=== PATIENT | male | born 1955 | race Caucasian/White ===

== ENCOUNTER 2025-05-08 18:42 | Inpatient (IN) | payer OTHER, SELFPAY ==
[2025-05-08] VITALS (33 sets, daily range): BP systolic 94–138; BP diastolic 62–94
[2025-05-08 14:07] LABS: % Basophils 0.6 % (0-2); % Eosinophils 1.5 % (0-6); % Immature Granulocytes 0.3 % (0-0.5); % Lymphocytes 9.8 % (20.5-51.1); % Monocytes 9.9 % (1.7-9.3); % Neutrophils 77.9 % (42.2-75.2); Absolute Eosinophils 0.1 10^3/uL (0-0.7); Absolute Lymphocytes 0.7 10^3/uL (1.2-3.4); Absolute Monocytes 0.7 10^3/uL (0.1-0.6); Absolute Neutrophils 5.2 10^3/uL (1.4-6.5); Hematocrit 42.3 % (39.0-52.0); Hemoglobin 14.8 g/dL (13.0-18.0); Mean Corpuscular Hgb 32.1 pg (27.0-31.0); Mean Corpuscular Volume 91.8 fL (80.0-94.0); Mean Platelet Volume 9.2 fL (7.4-10.4); Nucleated Red Blood Cells % 0 % (-); Platelet Count 209 10^3/uL (130-400); Red Blood Cell Count 4.61 10^6/uL (4.70-6.10); Red Cell Dist. Width 13.3 % (11.5-14.5); White Blood Cell Count 6.6 10^3/uL (4.8-10.8)
--- NOTE | 2025-05-08 14:08 | ED.GENMED ---
History of Present Illness
General
Chief Complaint: Chest Pain
Source: patient
Exam Limitations: none
Time Seen by Provider: 05/08/25 13:57
History of Present Illness
History of Present Illness:
Note:
CHIEF COMPLAINT(S)
Chest pain and discomfort.
HISTORY OF PRESENT ILLNESS
The patient is a 70-year-old male with a history of heart disease and multiple stent placements, presenting with chest pain and pressure, similar to prior myocardial infarctions. The symptom onset occurred approximately one hour before the
interview, while the patient was playing with his granddaughter. He describes the pain as pressure on his chest with jaw pain and was associated with sweating and clamminess. The patient took his usual 81 mg of aspirin, but no additional
medications. His past medical history includes a myocardial infarction with his last known heart attack occurring in 2020. The patient experienced a similar episode during a hockey game. He reports that his peoplesoft financial developer discontinued his Brilinta
medication in the spring, and he has only been on aspirin since.
CHRONIC MEDICAL CONDITIONS SIGNIFICANTLY AFFECTING CARE
History of myocardial infarction and coronary artery stent placement.
SOCIAL HISTORY
The patient denies current alcohol or drug use but has a history of substance exposure due to chemotherapy in the past.
MEDICATIONS
81 mg Aspirin daily.
PLAN
- Perform blood tests to evaluate cardiac enzyme levels.
- Administer additional aspirin to reach a full dose for today.
- Consider administering nitroglycerin for chest pain relief.
- Arrange for cardiology consultation given the patients cardiac history.
- Monitor symptoms and reassess based on test results and response to treatment.
DIFFERENTIAL DIAGNOSIS
The Differential Diagnosis includes, in no particular order and is not limited to:
1. Myocardial infarction
2. Angina pectoris
3. Gastroesophageal reflux disease
4. Musculoskeletal chest pain
Past History
Past History
ED Past Medical History: CAD, HTN, Hypercholesterolemia and Other (Coronary artery disease status post stents x2, Dillard's esophagus, hypertension and reflux. History of hepatitis a)
ED Past Surgical History: Other (History of stent placement, multiple endoscopies, and hernia surgery.)
Social History
Tobacco: Non-smoker
Alcohol: None
Personal:
Living: with family
Employment: Employed
Family History
Family History: Diabetes
Phy Exam
Physical Exam
Physical Exam:
General: Well-appearing male no acute respiratory distress
HEENT: Normocephalic atraumatic
Heart: Regular rate and rhythm
Lungs: Clear no wheeze
Extremities: No cyanosis or edema
Scores
Heart Score for Chest Pain Patients
STEMI patient?: No
History: Highly Suspicious
ECG: Nonspecific Repolarization
Age: >/= 65 years
Risk Factors: >/= 3 Risk Factors or History of CAD
Troponin: </= Normal Limit
Heart Score for Chest Pain Patients: 7
Heart Score Risk: 72.7 % MACE over next 6 weeks
Course
Orders/Labs/Results
Orders:
Orders
05/08/25 13:46
Electrocardiogram (*1) Urgent
Reason for Study: Chest Pain
05/08/25 13:47
EKG- Treatment ONCE
05/08/25 13:54
Cardiac Monitoring- Treatment ONCE
05/08/25 14:01
Complete Blood Count/With Diff Urgent
Comprehensive Metabolic Panel Urgent
Troponin I Urgent
05/08/25 14:06
Aspirin Chewable [Low Strength Aspirin] 243 mg PO NOW STA
Nitroglycerin Sublingual [Nitrostat (Sublingual)] 0.4 mg SL [id number] PRN
05/08/25 14:08
CR Chest Portable - 1 View Urgent
Comment:
Reason For Exam: chest pain
Reason Study Needs to be Portable: Patient Unstable
05/08/25 15:02
Electrocardiogram (*1) Urgent
Reason for Study: Chest Pain
EKG- Treatment ONCE
05/08/25 15:10
Echo 2D MMode Color/Doppler [Echo 2D MMode Color/Doppler] Stat
Reason for Study: chest pain/ACS
Cardiology Consult: Erin Gold
05/08/25 15:13
Heparin 4,000 units IV NOW STA
Nursing to Place Non Medication Order As Directed
Physician Order: PTT 6 hours after initial start of Heparin infusion
05/08/25 15:15
Heparin 38011 Units/250 ml 25,000 units in 250 ml IV PER PROTOCOL
Weight to be used for heparin protocol in kilograms (kg):: 84.9
Protocol:: Cardiac Tx/Acute Coronary
PTT Goal Range to be used:: PTT 73 to 111 seconds
Order type:: Initial
INITIAL Infusion Dose (UNITS/KG/hr) & then follow protocol:: 12 units/kg/hr
Infusion Dose in UNITS/hr & then follow protocol (UNITS/hr):: 1,000
INFUSION RATE in mL/hr & then follow protocol (mL/hr):: 10
PTT less than or equal to 64 seconds:: Increase rate by 200 units/hr (+ 2 mL/hr)
PTT 64.1 to 72.9 seconds:: Increase rate by 100 units/hr (+ 1 mL/hr)
PTT 73 to 111 seconds:: Target Range. No change in rate.
PTT 111.1 to 130.9 seconds:: Decrease rate by 100 units/hr (- 1 mL/hr)
PTT 131 to 199.9 seconds:: HOLD for 1 hr. Then decrease rate by 200 units/hr (- 2 mL/hr)
PTT greater than or equal to 200 seconds:: HOLD for 2 hrs & Notify Provider. Then decrease by 200 units/hr (-
2 mL/hr)
Lab follow-up:: Each change, PTT q6h until 2 consecutive are therapeutic. Then PTT
daily.
05/08/25 15:33
PTT Urgent
Comment: Obtain baseline before beginning heparin infusion if not already collected
05/08/25 16:00
Mag Hydrox/Al Hydrox/Simeth [Maalox] 30 ml PO NOW STA
Abnormal Lab Results
05/08/25
14:01
RBC 4.61 L 10^6/uL
(4.70-6.10)
MCH 32.1 H pg
(27.0-31.0)
Absolute Lymphs (auto) 0.7 L 10^3/uL
(1.2-3.4)
Absolute Monos (auto) 0.7 H 10^3/uL
(0.1-0.6)
Neutrophils % 77.9 H %
(42.2-75.2)
Lymphocytes % 9.8 L %
(20.5-51.1)
Monocytes % 9.9 H %
(1.7-9.3)
Chloride 113 H mmol/L
(98-107)
BUN 25 H mg/dl
(9-20)
Glucose 138 H mg/dl
(70-99)
05/08/25 14:01
05/08/25 14:01
Vital Signs
Initial and Last Documented VS:
Initial Vital Signs
Temp Pulse Resp BP Pulse Ox
98.0 F 68 17 128/80 99
05/08/25 13:50 05/08/25 13:50 05/08/25 13:50 05/08/25 13:50 05/08/25 13:50
Last Documented Vital Signs
Temp Pulse Resp BP Pulse Ox
98.0 F 65 16 102/74 95
05/08/25 13:50 05/08/25 15:45 05/08/25 15:45 05/08/25 15:05 05/08/25 15:15
*Pulse Oximetry
Patient hypoxic: no
Comment: 96% room air
*Critical Care Note
Total Time (30-74mins, 75-104mins- exclusive of procedures): Not Applicable
Update Note
Update Note:
Initial troponin undetectable. Patient received 3 sublingual nitroglycerin tablets. He received the remainder of a full aspirin. Seen by cardiology who recommended patient stay in the hospital given concerning story and history. Hospitalist made
aware
ED Attending Note
-
Portions of this chart may have been created with voice recognition software.� Occasional wrong word or��sound alike� substitutions may have occurred due to the inherent limitations of voice recognition software.
Discharge Plan
Departure
Patient Disposition: Admit
Date of Disposition: 05/08/25
Time of Disposition: 16:06
Presentation/result/management discussed w/ accepting MD/DO: Hospitalist
Discharge Problem:
Chest pain
Prescriptions:
No Action
carvedilol 6.25 mg Tablet
6.25 mg PO BID
lisinopril 20 mg Tablet
20 mg PO HS
prednisone 5 mg Tablet
5 mg PO DAILY
Patient Comments:
05/08/2025, pt. takes w/ their Zytiga.
spironolactone 25 mg Tablet
25 mg PO DAILY
pantoprazole 40 mg Tablet,Delayed Release (Dr/Ec)
40 mg PO DAILY
aspirin 81 mg Tablet
81 mg PO DAILY
abiraterone [Zytiga] 250 mg Tablet
1,000 mg PO DAILY
Patient Comments:
05/08/2025, takes with prednisone. Last filled on 04/04/2025 for 120 tablets for a 30-day supply per [employer] ([phone]).
dapagliflozin propanediol [Farxiga] 10 mg Tablet
10 mg PO DAILY@1400
Repatha SureClick 140 mg/mL Pen Injector
140 mg SC Q2W
Patient Comments:
05/08/2025, next dose is due on 05/12/2025 per pt.
Interventions
Interventions:
*Risk Screen - Suicide Last Done: 05/08/25 13:52
*General Assessment Last Done: 05/08/25 13:52
*Neglect/Abuse Screening Last Done: 05/08/25 13:52
*ED COVID-19 Vaccine History Last Done: 05/08/25 13:52
ED- Cardiac Assessment Last Done: 05/08/25 14:04
Discharge Date and Time
Print Language: COOK ISLANDER
[2025-05-08] MEDS: NITROSTAT (SUBLINGUAL) 0.4 MG SL (14:11)
[2025-05-08] MEDS: LOW STRENGTH ASPIRIN 243 MG PO (14:11)
[2025-05-08 14:28] LABS: ALT (SGPT) 18 U/L (0-50); AST (SGOT) 19 U/L (17-59); Albumin 3.9 g/dl (3.5-5.0); Alkaline Phosphatase 97 U/L (38-126); Blood Urea Nitrogen 25 mg/dl (9-20); Calcium 9.4 mg/dl (8.4-10.2); Carbon Dioxide 24 mmol/L (22-30); Chloride 113 mmol/L (98-107); Glucose 138 mg/dl (70-99); Potassium 3.9 mmol/L (3.5-5.1); Sodium 144 mmol/L (135-145); Total Bilirubin 0.5 mg/dl (0.2-1.3); Total Protein 6.5 g/dl (6.3-8.2); eGFR > 60.00
[2025-05-08 14:40] LABS: Troponin I < 0.012 ng/ml
--- NOTE | 2025-05-08 15:13 | CON.CAR ---
Addendum entered and electronically signed by Erin Gold MD 05/08/25 18:00:
I saw and examined the patient.
The Unit Control Worker's note was reviewed and I agree with the note.
Comment: Shantanu is a 70-year-old gentleman with past medical history of hypertension, hyperlipidemia, ischemic cardiomyopathy with baseline LVEF of about 40 to 45% reportedly, coronary artery disease with prior stents dating all the way back to
2002, initially in the LAD, 2006 in the RCA with another stent for in-stent restenosis in 2016, repeat LAD PCI with PTCA to diagonal in 2021 who presents today to the hospital with sudden onset substernal chest pressure radiating to the jaw while at
rest 30 minutes after walking around with his daughter and grandkids while visiting from [facility]. His initial troponin is negative at less than 0.01 however he needed for sublingual nitroglycerin with intermittent relief in chest
discomfort, never resolve meant.
1. Vital signs and lab work reviewed. Of note initial troponin is less than 0.01. ECG with no signs of acute ischemic changes.
On exam patient is well-appearing, alert and oriented in mild distress, no JVP, normal carotid upstrokes, no carotid bruit
Lungs are clear to auscultation bilaterally, regular rate, normal S1 and S2, no murmurs rubs or gallops, 2+ radial pulse on the right side, warm extremities without significant edema
Recommendations:
1. Given concern for unstable angina, along with the aspirin he received in ED already, we will initiate a heparin drip. Given his 6 out of 10 chest discomfort he was given sublingual nitroglycerin at bedside per my direction. Blood pressure at
this point reduced down to 100/84 while patient continues to have 1 out of 10 jaw pain and 2 out of 10 chest pressure. With ongoing symptoms despite treatment for ACS, decision was made to initiate decision-making fashion to bring patient up to the
heart catheterization lab for urgent heart catheterization after discussing detailed risk and benefits and obtaining informed consent.
2. Continue aggressive medical therapy for ischemic cardiomyopathy and secondary CAD risk factors. Work on obtaining records.
3. Further recommendations based on results of the heart catheterization.
4. Patient's and daughter at bedside who were involved in the decision-making and informed of all of the above.
5. Given some belching and GI symptoms with known history of hiatal hernia, with ongoing chest discomfort we also asked the nurse at bedside to give him some Maalox
Discussed all of the above with nursing staff at bedside.
Erin Gold MD, [facility], [facility]
Original Note:
Consultation
Consultation Request
Date/Time Consultation Requested: 05/08/2025
Date/Time Consultation Performed: 05/08/2025
Requesting Provider: Billy Camacho PA-C
Performing Provider: Abbey Gonzalez PA-C for Dr. Gold
Reason for Consultation: Chest pain
Medical History
-
History of Present Illness:
Patient is a 70-year-old male with past medical history significant for coronary artery disease with history of anterior wall MN and VT/V-fib arrest 10/11/2023 with LAD stent and PTCA of diagonal, RCA stent in 2005 and additional stenting in
[place] in 2017 (unknown vessels) he, ischemic cardiomyopathy, hypertension, hyperlipidemia, hiatal hernia, prostate cancer status post XRT on Zytiga and Lupron who presents to emergency department 05/08/2025 with acute onset of substernal chest
pain. Patient currently lives in [facility] and follows with Dr. Eleazar Marie [phone]. He reports he saw his supply tech in the spring and had an echo and stress test that 'were fine.' He is here in [place] visiting his daughter.
He was playing with his young granddaughter earlier this afternoon when he developed acute onset of substernal chest pain around 1 PM which radiated into his jaw and down his left arm. He then became diaphoretic and had excessive belching. He
reports his symptoms were similar to when he had a prior coronary event. His daughter reports he looked very pale. They called 911 [address] to [address] him in personal vehicle as they did not live very far from the hospital. Blood pressure on
arrival 128/80. EKG showed sinus rhythm at 62 bpm with nonspecific lateral T wave abnormality. Chest x-ray did show moderate size hiatal hernia which patient reports is a known and chronic finding. Initially chest pain was 9 out of 10. He was
provided sublingual nitroglycerin x 3 over course of 15 to 20 minutes with improvement but not complete resolution of symptoms. Post nitroglycerin blood pressure dropped to 102/68. At time of this evaluation patient notes very mild substernal
chest discomfort 0.5/10 and mild jaw pain. Also occasional belching.
Past medical history:
Coronary artery disease
Anterior MN with VT V-fib arrest September 2003 status post 4.0 x 28 mm Cypher ESTHER to LAD, PTCA of diagonal
Status post 4.0 Taxus ESTHER to mid RCA July 2006
Status post ESTHER x 2 in [place] in 2016, unclear vessels
Ischemic cardiomyopathy EF 44%
Hypertension
Hyperlipidemia
Hiatal hernia
Prostate cancer status post XRT currently on Zytiga and Lupron
Hepatitis A
GERD/Dillard's esophagus
Past Medical History
Past Medical History: Other (See HPI)
Past Surgical History: Cardiac (ESTHER to LAD 12/2002, ESTHER to RCA 2005, additional ESTHER times 12/2016, unclear vessels) and Other (Hernia repair)
Social History
Tobacco: Non-Smoker
Alcohol: Occasional (Occasional beer once a month)
Drug: None
Living: Other (Girlfriend/significant other)
Employment: Retired (Teacher)
Family History
Family History: Diabetes and Hypertension
Allergies / Home Medications
Allergy/AdvReac Type Severity Reaction Status Date / Time
No Known Allergies Allergy Unverified 05/08/25 13:51
�Medication �Instructions �Recorded �Confirmed �Type
abiraterone 250 mg tablet (Zytiga) 1,000 mg PO DAILY 05/08/25 05/08/25 History
aspirin 81 mg tablet 81 mg PO DAILY 05/08/25 05/08/25 History
carvedilol 6.25 mg tablet 6.25 mg PO BID 05/08/25 05/08/25 History
dapagliflozin propanediol 10 mg 10 mg PO DAILY@1400 05/08/25 05/08/25 History
tablet (Farxiga)
evolocumab 140 mg/mL subcutaneous 140 mg SC Q2W 05/08/25 05/08/25 History
pen injector (Mary Beth Solo)
lisinopril 20 mg tablet 20 mg PO HS 05/08/25 05/08/25 History
pantoprazole 40 mg tablet,delayed 40 mg PO DAILY 05/08/25 05/08/25 History
release
prednisone 5 mg tablet 5 mg PO DAILY 05/08/25 05/08/25 History
spironolactone 25 mg tablet 25 mg PO DAILY 05/08/25 05/08/25 History
Review of Systems
-
History Source: Patient
All other systems: Negative unless noted
Physical Exam
Vital Signs
Temp Pulse Resp BP Pulse Ox
98.0 F 59 16 102/74 96
05/08/25 13:50 05/08/25 15:05 05/08/25 15:05 05/08/25 15:05 05/08/25 15:05
GEN: No distress, awake, Ox3
HEENT: supple, anicteric, mmm
LUNGS: CTA, no wheezes/rales
CV: Reg, S1/S2, no murmur, rub or gallop
ABD: soft, BS+, NT/ND
EXT: No edema, clubbing or cyanosis
NEURO: Gross non-focal
SKIN: No rash, warm, dry, pink
Lab Results
05/08/25 14:01
05/08/25 14:01
Troponin I < 0.012 ng/ml 05/08/25 14:01
Impression / Plan
-
Enterprise Architect Manager: [facility] � Cardiology at [phone].�
Impression:
Presents 05/08/2025 with acute onset of substernal chest pain radiating into jaw down left arm associated with diaphoresis and excessive belching
Concern for acute coronary syndrome
Coronary artery disease
Anterior MN with VT V-fib arrest September 2003 status post 4.0 x 28 mm Cypher ESTHER to LAD, PTCA of diagonal
Status post 4.0 Taxus ESTHER to mid RCA July 2006
Status post ESTHER x 2 in [place] in 2016, unclear vessels
Ischemic cardiomyopathy EF 44%
Hypertension
Hyperlipidemia
Hiatal hernia
Prostate cancer status post XRT currently on Zytiga and Lupron
Hepatitis A
GERD/Dillard's esophagus
Echo 10/02/2015: EF 45%. Mild anteroseptal akinesis, mid to apical septal akinesis. Mildly dilated left atrium. No significant valvular disease
Plan:
Presents 05/08/2025 with acute onset of substernal chest pain radiating into jaw down left arm associated with diaphoresis and excessive belching.
- Symptoms concerning for acute coronary syndrome and similar to prior ischemic event.
- Chest x-ray did show moderate size hiatal hernia which patient reports is a known and chronic finding.
- EKG in emergency department shows sinus rhythm with nonspecific lateral T wave abnormality. Initial troponin was negative. Would repeat x 4 hours
- Chest pain improved after sublingual nitroglycerin x 3 and baby aspirin in emergency department.
- Start heparin drip per ACS protocol
- Will obtain urgent echocardiogram
- Continue to monitor on telemetry
- Keep n.p.o. for now. If patient should have recurrent anginal symptoms would have low threshold for urgent cardiac catheterization.
- Did discuss with patient that x-ray does show moderate size hiatal hernia which also could be a cause of his ongoing symptoms.
- History of known ischemic cardiomyopathy with appropriate GDMT as outpatient. Continue carvedilol, lisinopril, Farxiga, Aldactone and Repatha
- History of prostate cancer currently on on Zytiga, Lupron and low dose prednisone
- Outpatient cardiology records have been requested from Dr. Marie's office
Data Reviewed
-
EKG: Report Reviewed by me, Discussed with Physician, Discussed with Nurse, Discussed with Patient and Discussed with Family
Radiology: Report Reviewed by me, Discussed with Physician, Discussed with Nurse, Discussed with Patient and Discussed with Family
Labs: Labs Reviewed by me, Discussed with Physician, Discussed with Nurse, Discussed with Patient and Discussed with Family
Old Records: Requested (Dr. Marie )
--- NOTE | 2025-05-08 15:49 | CARDSERVLU ---
Echocardiogram with Lumason completed after protocol screening completed. Allergies verified.
Patent IV site: __existing site RAC 20 P___
IV site flushed with 0.9% NaCl pre and post administration.
Diluted bolus method utilized to enhance visualization of ventricular flores.
Total volume given: _4.5___ mL under direction echosonographer.
Patient tolerated all procedures well without complications.
[2025-05-08] MEDS: HEPARIN 4000 UNITS IV (15:50)
[2025-05-08] MEDS: HEPARIN 25000 UNITS/250 ML IV (15:51)
[2025-05-08 15:54] LABS: APTT 25.8 Sec (23.4-35.0)
[2025-05-08] MEDS: MAALOX 30 ML PO (16:00)
[2025-05-08 16:59] LABS: ACT-LR - POC 181 Seconds (116-155)
--- NOTE | 2025-05-08 17:26 | ITS.CL.CATH ---
Musical Instruments Assembler - Catheterization
Cardiac Catheterization
Procedure Report:
LEFT HEART CATHETERIZATION
Date of Procedure: May 08, 2025
Referring: [place] emergency department
PROCEDURES:
1. Left heart catheterization, coronary angiogram.
2. Moderate sedation.
INDICATION: Shantanu is a 70-year-old gentleman with past medical history of hypertension, hyperlipidemia, ischemic cardiomyopathy with baseline LVEF of about 40 to 45% reportedly, coronary artery disease with prior stents dating all the way back to
2002, initially in the LAD, 2006 in the RCA with another stent for in-stent restenosis in 2016, repeat LAD PCI with PTCA to diagonal in 2021 who presents today to the hospital with sudden onset substernal chest pressure radiating to the jaw while at
rest 30 minutes after walking around with his daughter and grandkids while visiting from [facility]. His initial troponin is negative at less than 0.01 however he needed for sublingual nitroglycerin with intermittent relief in chest
discomfort, never resolve meant. With ongoing symptoms despite treatment for ACS, decision was made to bring patient up to the heart catheterization lab for urgent heart catheterization after discussing detailed risk and benefits and obtaining
informed consent.
ACCESS: Right radial artery, 6Fr. sheath, under US guidance.
HEMODYNAMICS : (mmHg)
AO (s/d) : 109/73
LVEDP : 15
Invasive transaortic gradient of 15 mmHg, consistent with mild aortic stenosis.
CORONARY FINDINGS
Dominance: Right
Left Main Trunk (LMT): Large caliber vessel that gives rise to the LAD and LCx branches. There is mild diffuse atherosclerotic plaque.
Left Anterior Descending Artery (LAD): Large caliber vessel that gives off 2 major diagonal branches as it courses along the anterior inter-ventricular groove before wrapping around the cardiac apex. Previously placed mid LAD stent is patent. Mid
LAD at the level of D1 takeoff has 30 to 40% stenosis but otherwise there is mild diffuse atherosclerotic plaque and JUNG-3 flow into the distal vessel. [id number] collaterals noted.
Left Circumflex Artery (LCx): Large caliber vessel that gives off 2 major obtuse marginal (OM) branches as it courses along the atrio-ventricular (AV) groove. There is mild diffuse atherosclerotic plaque with otherwise JUNG-3 flow and moderately
tortuous coronary arteries.
Right Coronary Artery (RCA): Large caliber dominant vessel that gives rise to the posterior descending artery (RPDA) and postero-lateral ventricular (RPLV) branches distally. There is 100% chronic total in-stent occlusion in the midportion where 2
layers of stent are noted with a obviously underexpanded stent. Biix-kn-scoft collaterals are noted.
SEDATION: 27 minutes of procedural sedation was utilized. IV Midazolam and IV Fentanyl were administered. An independent emergency medical service coordinator was present to assist with and help manage the patient's level of consciousness and physiologic status.
RADIATION SUMMARY: Fluoro Time (min): 3.1, Dose (mGy): 508.87, DAP (Gy.cm2) : 39.5
Closure Device: There were no immediate intra-procedural complications. The sheath was pulled in the photographic laboratory supervisor and a vascular-band applied to the right wrist for radial artery hemostasis using the patent hemostasis technique.
CONCLUSIONS
1. Mild to moderate atherosclerotic plaque in the left coronary arteries.
2. 100% chronic total in-stent occlusion in the mid RCA with [id number] collaterals.
3. High normal LVEDP at 15 mmHg.
4. Invasive transaortic gradient of 15 mmHg, consistent with mild aortic stenosis.
RECOMMENDATIONS
1. Wean radial band per protocol. Monitor right hand perfusion and for bleeding from the radial site following removal of the vascular-band following trans-radial access.
2. Continue aggressive medical therapy and risk factor modification for secondary CAD prevention.
3. Hydrate with normal saline to mitigate the risk of contrast-induced acute kidney injury.
4. Defer to primary hospitalist team to workup/assess for noncardiac etiologies of chest discomfort, particularly GI given patient's known history of hiatal hernia
Erin Gold MD, FAC, [facility]
--- NOTE | 2025-05-08 18:04 | PTCARENOTE ---
Rec'd pt from wetlands conservation laborer. R radial hemostasis band on. No bleeding/hematoma noted. Pt has no complaints of pain/discomfort at this time. Tele- SR w/ occ. PVCS. HR 60s. Activity restrictions reviewed w/ pt and verbalizes understanding. Currently in
bed; call anthony w/in reach.
--- NOTE | 2025-05-08 18:43 | HPS.HSE ---
Family Physician
-
Family Physician: PHYSICIAN PRIVATE
Chief Complaint
-
chest pain
History of Present Illness
70-year-old male past medical history of CAD status post multiple stents, VT/V-fib arrest, ischemic cardiomyopathy, hypertension, hyperlipidemia, hiatal hernia, prostate cancer status post radiation, presenting with substernal chest pain.
Patient currently lives in [facility] follows with Dr. Eleazar Marie as well as mammal control agent in the spring and had echo and stress test that were fine. He was playing with his young granddaughter earlier this afternoon when he developed acute onset
of substernal chest pain which radiated into his jaw and down his left arm. He became diaphoretic and had excessive belching. He looked pale.
Initial chest pain was rated 9 out of 10 and he was given sublingual nitroglycerin with improvement but not complete resolution of symptoms. He notes very mild substernal chest discomfort mild jaw pain. Occasional belching.
Patient underwent cardiac catheterization and now denies any chest pain like earlier.
Patient states that he was previously on pantoprazole twice a day but since a year ago his pharmacy has only been giving him once a day. He fell twice a day helped. He is having some acid reflux burning currently although the severe chest pain is
resolved.
Medical History
Past Medical History
Past Medical History: Reports Other (CAD status post multiple stents, VT/V-fib arrest, ischemic cardiomyopathy, hypertension, hyperlipidemia, hiatal hernia, prostate cancer status post radiation)
Past Surgical History: Reports None
Social History
Tobacco: Non-smoker
Alcohol: None
Drug: None
Family History
Family History: Not pertinent
Allergies / Home Medications
Allergies reflects when Allergies were last updated in [facility] [employer]
Home Medications with original date entered in [facility] [employer]
Allergy/Medication List:
Allergies
Allergy/AdvReac Type Severity Reaction Status Date / Time
No Known Allergies Allergy Unverified 05/08/25 13:51
Home Medications
abiraterone 250 mg tablet (Zytiga) 1,000 mg PO DAILY 05/08/25
aspirin 81 mg tablet 81 mg PO DAILY 05/08/25
carvedilol 6.25 mg tablet 6.25 mg PO BID 05/08/25
dapagliflozin propanediol 10 mg tablet (Farxiga) 10 mg PO DAILY@1400 05/08/25
evolocumab 140 mg/mL subcutaneous pen injector (Repatha SureClick) 140 mg SC Q2W 05/08/25
lisinopril 20 mg tablet 20 mg PO HS 05/08/25
pantoprazole 40 mg tablet,delayed release 40 mg PO DAILY 05/08/25
prednisone 5 mg tablet 5 mg PO DAILY 05/08/25
spironolactone 25 mg tablet 25 mg PO DAILY 05/08/25
Review of Systems
-
History Source: Patient
A 12 point ROS was completed and negative except as noted: Yes
Constitutional: Reports No Symptoms
EENT: Reports No Symptoms
Respiratory: Reports See HPI
Cardiac: Reports See HPI
Abdomen/GI: Reports No Symptoms
: Reports No Symptoms
Musculoskeletal: Reports No Symptoms
Skin: Reports No Symptoms
Neurological: Reports No Symptoms
Endocrine: Reports No Symptoms
Hematologic/Lymphatic: Reports No Symptoms
Psych: Reports No Symptoms
Physical Exam
Vital Signs
Vital Signs
Temp Pulse Resp BP Pulse Ox
98.0 F 69 16 112/94 96
05/08/25 17:37 05/08/25 16:30 05/08/25 17:37 05/08/25 16:30 05/08/25 17:37
Physical Exam
General: Well Developed, Well Nourished and No Apparent Distress
HEENT: NormoCephalic, Moist mucous membranes and Atraumatic
Respiratory: Clear
Cardiac: S1/S2 and Regular Rhythm; No Murmur or Rub
GI: Soft, Non Tender, Non Distended and Normal Bowel Sounds; No Organomegaly
Rectal: Deferred by Provider
Musculoskeletal: No Clubbing, No Cyanosis and No Edema
Skin: No Rash
Neuro: Nonfocal/grossly intact
Laboratory Results
-
05/08/25 14:01
05/08/25 14:01
Laboratory Results
APTT Cancelled 05/08/25 21:50
Total Bilirubin 0.5 mg/dl (0.2-1.3) 05/08/25 14:01
AST 19 U/L (17-59) 05/08/25 14:01
ALT 18 U/L (0-50) 05/08/25 14:01
Alkaline Phosphatase 97 U/L (38-126) 05/08/25 14:01
Troponin I < 0.012 ng/ml 05/08/25 14:01
Data Reviewed
-
Lab Data: Labs Reviewed by me
Old Records: Reviewed
Impression/Plan
-
IMPRESSION:
PLAN:
# Anginal pain versus GERD
# CAD status post multiple stents
- EKG shows sinus rhythm with first-degree AV block with occasional PVCs,
- Troponin negative
- Trend troponins
- Aspirin given
-taken to manager cath lab and had 100% chronic total in-stent occlusion in the mid RCA with [id number] collaterals, mild to moderate atherosclerotic plaque in left coronary arteries,
- IV fluids to avoid contrast MADDIE
- Increase Protonix back to twice daily
VT/V-fib arrest
Ischemic cardiomyopathy
- EF 44%
- Continue dapagliflozin
- Continue spironolactone
Essential hypertension
- Continue Coreg
- Continue lisinopril
Hyperlipidemia
- On Repatha
Hiatal hernia/GERD/Dillard's esophagus
Prostate cancer status post radiation
- Continue Zytiga, prednisone
History of hepatitis C
Full code
DVT prophylaxis heparin
Cardiac diet
[2025-05-08] MEDS: COREG 6.25 MG PO (20:20)
[2025-05-08] MEDS: PROTONIX 40 MG PO (20:20)
[2025-05-08] MEDS: ZESTRIL 2.5 MG PO (23:38)
[2025-05-09] VITALS (8 sets, daily range): BP systolic 100–120; BP diastolic 58–76
--- NOTE | 2025-05-09 00:38 | PTCARENOTE ---
Assumed care of the pt @ 190. Pt is AAOx3 Radial band removed @ 2029 dressing c/d/i. SR with 1 st degree AVB with frequent PVC's. Ugo Stafford notified of frequent PVC's. BP 103/59 @ 2200 20 mg Lisinopril dose held and adjusted to a x 1 dose of 2.5
mg. Pt denies CP. Call cruz within reach.
--- NOTE | 2025-05-09 05:04 | DOWNTIME ---
Addendum entered and electronically signed by Joann Jensen RN 05/09/25 14:25:
Correction: Downtime was 05/09/2025 from 0100 to 05/09/2025 at 0415
Original Note:
There was a [employer] Specialist Downtime on 05/08/2025 from 0100 to 05/09/2025 at 0415. Downtime documentation of patient's care, including medication administrations, has been reconciled in the electronic record per guidelines. Refer to the
patient's paper chart under the miscellaneous tab to see printed paper medication records and downtime forms.
[2025-05-09 05:52] LABS: ALT (SGPT) 18 U/L (0-50); AST (SGOT) 44 U/L (17-59); Albumin 3.3 g/dl (3.5-5.0); Alkaline Phosphatase 78 U/L (38-126); Blood Urea Nitrogen 20 mg/dl (9-20); Calcium 8.9 mg/dl (8.4-10.2); Carbon Dioxide 24 mmol/L (22-30); Chloride 112 mmol/L (98-107); Estimated Creatinine Clearance 100 ml/min; Glucose 103 mg/dl (70-99); HDL Cholesterol 26 mg/dl; LDL Cholesterol, Calculated 11 mg/dl; Magnesium 2.2 mg/dl (1.6-2.3); Potassium 4.3 mmol/L (3.5-5.1); Sodium 141 mmol/L (135-145); Total Bilirubin 0.5 mg/dl (0.2-1.3); Total Cholesterol 70 mg/dl (50-199); Total Protein 5.6 g/dl (6.3-8.2); Triglyceride 165 mg/dl (10-149); Very Low Density Lipoprotein 33 mg/dl (0-30); eGFR > 60.00
[2025-05-09] MEDS: COREG 6.25 MG PO (08:47)
[2025-05-09] MEDS: PROTONIX 40 MG PO (08:47)
[2025-05-09] MEDS: ALDACTONE 25 MG PO (08:47)
[2025-05-09] MEDS: ASPIR LOW (ENTERIC COATED) 81 MG PO (08:47)
[2025-05-09 08:48] LABS: % Basophils 0.4 % (0-2); % Eosinophils 1.5 % (0-6); % Immature Granulocytes 0.4 % (0-0.5); % Lymphocytes 9.9 % (20.5-51.1); % Monocytes 10.1 % (1.7-9.3); % Neutrophils 77.7 % (42.2-75.2); Absolute Eosinophils 0.1 10^3/uL (0-0.7); Absolute Lymphocytes 0.5 10^3/uL (1.2-3.4); Absolute Monocytes 0.5 10^3/uL (0.1-0.6); Absolute Neutrophils 4.1 10^3/uL (1.4-6.5); Hematocrit 36.6 % (39.0-52.0); Hemoglobin 12.6 g/dL (13.0-18.0); Mean Corp Hgb Conc. 34.4 g/dL (33.0-37.0); Mean Corpuscular Hgb 32.3 pg (27.0-31.0); Mean Corpuscular Volume 93.8 fL (80.0-94.0); Mean Platelet Volume 9.9 fL (7.4-10.4); Nucleated Red Blood Cells % 0 % (-); Platelet Count 167 10^3/uL (130-400); Red Cell Dist. Width 13.5 % (11.5-14.5); White Blood Cell Count 5.3 10^3/uL (4.8-10.8)
--- NOTE | 2025-05-09 09:28 | W.PN.HOSP.TC ---
Today's Communication/Plan
-
Discharge planning
Assessment / Plan
Assessment / Plan
Physical exam:
General: Well Developed, Well Nourished and No Apparent Distress
HEENT: Normocephalic, Atraumatic and Moist Mucous Membranes
Respiratory: Clear to Auscultation; Negative Wheezes, Rales or Rhonchi
Cardiac: Regular Rhythm and S1/S2
GI: Soft, Nontender and Nondistended
Musculoskeletal: No Clubbing, No Cyanosis and No Edema
Neuro: Awake, Alert and Oriented
Psych: Calm
A/P:
Chest pain:
Noncardiac
Cardiac workup completed
Recommend increase PPI for 2 weeks and then back to once a day and GI follow-up as outpatient
Appreciate cardiology consult
Ischemic cardiomyopathy
- EF 44%
- Continue dapagliflozin
- Continue spironolactone
Essential hypertension
- Continue Coreg
- Continue lisinopril
Hyperlipidemia
- On Repatha
Hiatal hernia/GERD/Dillard's esophagus
Prostate cancer status post radiation
- Continue Zytiga, prednisone
History of hepatitis C
Full code
DVT prophylaxis heparin
Cardiac diet
Anticipated Discharge: Today
Subjective/Interval History
-
Date of Service: May 09, 2025
Denies chest pain or shortness of breath.
Objective Data
-
Labs:
Laboratory Results
05/09/25 05/09/25
04:36 05:52
WBC Cancelled 5.3
Hgb Cancelled 12.6 L
Hct Cancelled 36.6 L
Plt Count Cancelled 167 D
Sodium 141
Potassium 4.3
Chloride 112 H
Carbon Dioxide 24
BUN 20
Creatinine 0.7
Glucose 103 H
Calcium 8.9
Total Bilirubin 0.5
AST 44
ALT 18
Alkaline Phosphatase 78
Vital Signs:
Vital Signs
Temp Pulse Resp BP Pulse Ox
98.3 F 53 16 110/64 97
05/09/25 08:03 05/09/25 08:03 05/09/25 08:03 05/09/25 08:00 05/09/25 08:03
--- NOTE | 2025-05-09 10:18 | W.PN.CARDCBS ---
Addendum entered and electronically signed by Isac Ferreira MD 05/09/25 11:51:
I saw and examined the patient.
The Auto Collision Repair Instructor's note was reviewed and I agree with the note.
Comment:
GEN: No distress, awake, Ox3
HEENT: supple, anicteric, mmm
LUNGS: CTA, no wheezes/rales
CV: Reg, S1/S2, /6 syst LSB, no gallop
ABD: soft, BS+, NT/ND
EXT: No edema
NEURO: Gross non-focal
SKIN: No rash
Plan:
Overall feels better. No new chest pains. Cath results reviewed with patient.
Recommended him to follow-up with his outpatient cross tie maker to continue medical therapy for CAD.
Continue Coreg, Farxiga, lisinopril, and spironolactone.
LVEF stable. Okay for discharge
Original Note:
Today's Communication / Plan
-
Continue aspirin.
No culprit vessel noted by cath 05/08.
Defer workup of noncardiac causes to primary service.
Continue coreg, farxiga, lisinopril, and spironolactone for ICM
EF stable by echo
Follow up w/ primary cross tie maker.
Impression / Plan
-
Forest Nursery Supervisor: Dr. Eleazar Marie ([facility] � Cardiology, )
Impression:
Presented w/ CP, diaphoresis, and excessive belching
CAD
Anterior IL with VT V-fib arrest 09/2003 s/p 4.0 x 28 mm Cypher ESTHER to LAD, PTCA of diagonal
s/p 4.0 Taxus ESTHER to mid RCA 07/2006
s/p ESTHER x 2 in [place] in 2017, unclear vessels
Chronic total in-stent occlusion of RCA w/ L to R collaterals by cath 05/08/2025
Ischemic cardiomyopathy EF 44%
Hypertension
Hyperlipidemia
Hiatal hernia
Prostate cancer s/p XRT currently on Zytiga and Lupron
Hepatitis A
GERD/Dillard's esophagus
C 05/08/2025: Mild to moderate atherosclerotic plaque in the left coronary arteries. 100% chronic total in-stent occlusion in the mid RCA with [id number] collaterals. High normal LVEDP at 15 mmHg. Invasive transaortic gradient of 15 mmHg,
consistent with mild aortic stenosis.
Echo 10/02/2015: EF 45%. Mild anteroseptal akinesis, mid to apical septal akinesis. Mildly dilated left atrium. No significant valvular disease
Echo 05/08/2025: EF 40-45%, mid anteroseptal akinesis, apical hypokinesis, mild cLVH, no significant valvular disease.
Plan:
-Presented with acute chest pain, diaphoresis, belching. Concern for ACS. Troponin negative x1.
-Echo 05/08 w/ stable EF 40-45% and no significant valvular disease.
-Given concerning symptoms w/ h/o CAD underwent [facility] with stable coronary disease. AVIONICS INSTALLER of RCA noted. No clear culprit vessel.
-Continue medical management. Continue aspirin 81mg daily.
-Known moderate hiatal hernia, chronic.
-Continue Coreg, lisinopril, Farxiga, Aldactone for CM.
-BP stable.
-Continue Repatha. LDL 11.
-Follow up w/ primary cross tie maker.
Progress Note - Forest Nursery Supervisor
Subjective
Date of Service: May 09, 2025
No further chest pain.
Objective
Labs:
05/09/25 05:52
05/09/25 04:36
Labs
Hgb 12.6 g/dL (13.0-18.0) L 05/09/25 05:52
Hct 36.6 % (39.0-52.0) L 05/09/25 05:52
Plt Count 167 10^3/uL (130-400) D 05/09/25 05:52
APTT Cancelled 05/08/25 21:50
Sodium 141 mmol/L (135-145) 05/09/25 04:36
Potassium 4.3 mmol/L (3.5-5.1) 05/09/25 04:36
BUN 20 mg/dl (9-20) 05/09/25 04:36
Creatinine 0.7 mg/dL (0.7-1.3) 05/09/25 04:36
Glucose 103 mg/dl (70-99) H 05/09/25 04:36
Troponins
05/08/25
14:01
Troponin I < 0.012
Vital Signs and I&O:
Vital Signs
Temp Pulse Resp BP Pulse Ox
98.3 F 53 16 110/64 97
05/09/25 08:03 05/09/25 08:03 05/09/25 08:03 05/09/25 08:00 05/09/25 08:03
Vital Signs
Temp Pulse Resp BP Pulse Ox
98.3 F 53 16 110/64 97
05/09/25 08:03 05/09/25 08:03 05/09/25 08:03 05/09/25 08:00 05/09/25 08:03
Physical Exam
Physical Exam
GEN: No distress, awake, alert, oriented x3
HEENT: supple, anicteric, mmm
LUNGS: CTA b/l, no wheezes/rales
CV: Reg, S1/S2, no murmur
EXT: No clubbing, cyanosis, or edema
NEURO: Gross non-focal
SKIN: Warm, dry, no rash
--- NOTE | 2025-05-09 12:11 | W.DCSUMMARY ---
Discharge Summary
Discharge Data
Date of Admission: 05/08/25
Date of Discharge: 05/09/25
-
Pending Results: No
Hospital Course
Patient is 70 years old male with history of hypertension, hyperlipidemia, ischemic cardiomyopathy, CAD, presented to the hospital with chest pain. Given his cardiac risk factors he was taken urgently to cardiac catheterization and revealed 100%
SUPERVISOR CORE DRILLING of RCA, mild to moderate atherosclerotic plaques in the left coronary artery and overall noncardiac chest pain etiology. On further questioning her symptoms are most likely related to his underlying hiatal hernia and worsening GERD. He has
been instructed to increase his PPI and follow-up with GI as outpatient. Patient feels symptomatically back to his baseline. He has improved earlier than expected. Cardiology has cleared him for discharge. He will be discharged in stable
condition today.
Discharge Plan
-
Patient Disposition: Home (Routine Discharge)
Discharge Diagnosis/Procedures: Chest pain. Hiatal hernia. Chronic systolic congestive heart failure. Hypertension.
Diet: Low Cholesterol
Activity: As tolerated
Blood Work: Please PCP to order CBC, BMP within 1 week
Stand Alone Forms: DC Instructions- Cath/EP Lab
Referrals:
PRIVATE,PHYSICIAN [Family Provider, Internal Medicine] - in less than 1 week
Additional Discharge Medication Instructions: Increase pantoprazole to 40 mg twice a day for 14 days and then back to once a day afterwards.
Prescriptions:
Continued
carvedilol 6.25 mg Tablet
6.25 mg PO BID
lisinopril 20 mg Tablet
20 mg PO HS
prednisone 5 mg Tablet
5 mg PO DAILY
Patient Comments:
05/08/2025, pt. takes w/ their Zytiga.
spironolactone 25 mg Tablet
25 mg PO DAILY
aspirin 81 mg Tablet
81 mg PO DAILY
abiraterone [Zytiga] 250 mg Tablet
1,000 mg PO DAILY
Patient Comments:
05/08/2025, takes with prednisone. Last filled on 04/04/2025 for 120 tablets for a 30-day supply per [facility] ([phone]).
dapagliflozin propanediol [Farxiga] 10 mg Tablet
10 mg PO DAILY@1400
Repatha SureClick 140 mg/mL Pen Injector
140 mg SC Q2W
Patient Comments:
05/08/2025, next dose is due on 05/12/2025 per pt.
Changed
pantoprazole 40 mg Tablet,Delayed Release (Dr/Ec)
40 mg PO BID Qty: 0 0RF
Discharge Orders:
Discharge Patient (As Directed); Ordered 05/09/25
Ordered By: John Moore
Care Plan Goals
Care Plan Goals:
Problem: Readiness for enhanced knowledge related to diagnosis and treatment plan
Goal: Understand your diagnosis and treatment plan needs, including medications if applicable.
Instructions: Know your diagnosis, underlying causes and treatment plan options, including medications if applicable. Consult with your health care team to learn about your diagnosis and treatment plan, including medications if applicable.
Discharge Date and Time
Discharge Date/Time: 05/09/25 14:40
Print Language: TELUGU
--- NOTE | 2025-05-09 12:32 | CM ---
Reviewed chart. Met with Mr Dallas to review discharge plans. He states prior to admission he resides lone in a [place] with five steps to enter. He states prior to admission he was independent with ambulation and adls. He states prior to
admission he was independent with ambulation and adls. He states he does not have any DME in the home. He states he has a prescription plan. Medical work-up in progress. The discharge plan is to return home when medically stable.
== END 2025-05-09 14:40 | disposition home or self-care (01) | DRG 287 ==
LOC: IVU 18:42
PROVIDERS: Nurse Practitioner; Physician Assistant; ADMITTING PHYSICIAN Hospitalist; ATTENDING PHYSICIAN Hospitalist; CONSULT PHYSICIAN Internal Medicine Interventional Cardiology; EMERGENCY PHYSICIAN Emergency Medicine
PROC: 4A023N7 Measurement of Cardiac Sampling and Pressure, Left Heart, Percutaneous Approach (ICD-10-PCS; 2025-05-08)
PROC: B2111ZZ Fluoroscopy of Multiple Coronary Arteries using Low Osmolar Contrast (ICD-10-PCS; 2025-05-08)
DX: I11.0 Hypertensive heart disease with heart failure (principal); I25.5 Ischemic cardiomyopathy; I50.22 Chronic systolic (congestive) heart failure; E78.00 Pure hypercholesterolemia, unspecified; C61 Malignant neoplasm of prostate; Z60.2 Problems related to living alone
CPT/HCPCS: 71045; 80053; 80061; 83735; 84484; 85025; 85347; 85730; 93005; 93306; 93458; 96365; 99152; 99153; 99285; Q9950; Q9967